=== PATIENT | male | born 1940 | race Caucasian/White ===

== ENCOUNTER 2021-01-22 11:04 | Emergency (ER) | payer MEDICARE ==
[~2021-01-22] VITALS: Ht 182.9 cm; Wt 90.4 kg
[2021-01-22] MEDS ORDERED: IV NORMAL SALINE 500ML 500 ML IV ONE (11:15)
[2021-01-22 11:18] VITALS: BP 124/69
[2021-01-22] MEDS ORDERED: IV NORMAL SALINE 1,000ML 1,000 ML IV ONE (11:30)
--- NOTE | 2021-01-22 11:45 | PHYS DOC ---
Past History Past Surgical History: Other Additional Past Surgical Histo: unk Alcohol Use: None General Adult EDM: Chief Complaint: ABNORMAL LABS HPI: HPI: 80-year-old male presents via EMS from the care facility for abnormal labs. The patient has advanced dementia and does not answer questions. The care facility told us that he was sent here for IV fluids and they could not get him there because the patient can be sometimes combative. Patient's creatinine and BUN are reportedly elevated at 3.5 and 53. The patient did deny having any pain to me. Review of Systems: Review of Systems: unable to perform due to patient's dementia Current Medications: Current Meds: Current Medications Medications (Trade) Dose Ordered Sig/Raffi Start Time Stop Time Status Last Admin Dose Admin Sodium Chloride 1,000 ml @ 1,000 mls/hr 1X ONCE 01/22/21 11:30 01/22/21 12:29 Allergies: Allergies: Allergies Coded Allergies Type Severity Reaction Last Updated Verified No Known Drug Allergies 01/22/21 No Physical Exam: PE: Constitutional: Well developed, well nourished, no acute distress, non-toxic appearance. [] HENT: Normocephalic, atraumatic, bilateral external ears normal, oropharynx moist, no oral exudates, nose normal. [] Eyes: PERRLA, EOMI, conjunctiva normal, no discharge. [] Neck: Normal range of motion, no tenderness, supple, no stridor. [] Cardiovascular: Heart rate regular rhythm, no murmur [] Lungs & Thorax: Bilateral breath sounds clear to auscultation [] Abdomen: Bowel sounds normal, soft, no tenderness, no masses, no pulsatile masses. [] Skin: Warm, dry, no erythema, no rash. [] Back: No tenderness, no CVA tenderness. [] Extremities: No tenderness, no cyanosis, no clubbing, ROM intact, no edema. [] Neurologic: Alert and oriented X 3, normal motor function, normal sensory function, no focal deficits noted. [] Psychologic: Affect normal, dementia. [] Current Patient Data: Vital Signs: Vital Signs Date Time Temp Pulse Resp B/P (MAP) Pulse Ox O2 Delivery O2 Flow Rate FiO2 01/22/21 11:18 98.2 78 16 124/69 (87) 94 Room Air EKG: EKG: [] Radiology/Procedures: Radiology/Procedures: [] Heart Score: C/O Chest Pain: N/A Risk Factors: Risk Factors: DM, Current or recent (<one month) smoker, HTN, HLP, family history of CAD, obesity. Risk Scores: Score 0 - 3: 2.5% MACE over next 6 weeks - Discharge Home Score 4 - 6: 20.3% MACE over next 6 weeks - Admit for Clinical Observation Score 7 - 10: 72.7% MACE over next 6 weeks - Early Invasive Strategies Course & Med Decision Making: Course & Med Decision Making Pertinent Labs and Imaging studies reviewed. (See chart for details) The patient's labs were significant for an elevated creatinine of 2.7, elevated sodium, and elevated chloride. I have no previous labs in the chart for comparison. He has been given a liter of normal saline hydration. He is stable to return to his care facility. [] Lennie Disclaimer: Lennie Disclaimer: This electronic medical record was generated, in whole or in part, using a voice recognition dictation system. Departure Departure: Impression: Primary Impression: Elevated serum creatinine Disposition: HOME / SELF CARE / HOMELESS Condition: STABLE Referrals: PCP,NO (PCP) Patient Instructions: Acute Kidney Injury SHAILA CARTER DO Jan 22, 2021 11:45
[2021-01-22 12:38] LABS: CREATININE 2.7 mg/dL (0.7-1.3); GFR 22.9; POTASSIUM 4.2 mmol/L (3.5-5.1)
[2021-01-22 12:40] LABS: BASO # 0.1 x10^3/uL (0.0-0.2); BASO % 1 % (0-3); EOS # 0.2 x10^3/uL (0.0-0.7); EOS % 3 % (0-3); HEMATOCRIT 40.1 % (39.0-53.0); LYMPH # 2.5 x10^3/uL (1.0-4.8); LYMPH % 33 % (24-48); MEAN CORPUSCULAR HEMOGLOBIN 32 pg (25-35); MEAN CORPUSCULAR HGB CONC 32 g/dL (31-37); MEAN CORPUSCULAR VOLUME 97 fL (79-100); MONO # 0.6 x10^3/uL (0.0-1.1); MONO % 8 % (0-9); NEUT % 54 % (31-73); PLATELET COUNT 235 x10^3/uL (140-400); RED BLOOD COUNT 4.13 x10^6/uL (4.30-5.70); RED CELL DISTRIBUTION WIDTH 14.6 % (11.5-14.5); WHITE BLOOD COUNT 7.4 x10^3/uL (4.0-11.0)
[2021-01-22 12:46] LABS: ALBUMIN/GLOBULIN RATIO 0.8 (1.0-1.7); TOTAL BILIRUBIN 0.8 mg/dL (0.2-1.0)
== END 2021-01-22 14:06 | disposition home or self-care (01) ==
LOC: ER 11:04
DX: R94.4 Abnormal results of kidney function studies (principal)
CPT/HCPCS: 36415; 80053; 85025; 96360; 96361; 99283; J7030